=== PATIENT | female | born 1950 ===

== ENCOUNTER 2017-05-11 13:00 | Emergency (ER) | payer MEDICARE, MEDICAID ==
[2017-05-11 13:32] VITALS: BP 128/81
--- NOTE | 2017-05-11 15:11 | UC ---
Yony Ramírez Stephanie, scribed for Silvia Bryant MD on 05/11/17 at 1448 . Upper Extremity HPI - HPI Summary HPI Summary: The pt is a 66 y/o F presenting to with finger pain on her L middle finger that began yesterday. Symptoms include bruising over the left middle digit. The pt tripped and fell while leaving [employer] and landed on her knees bilaterally. Pt states struck left hand as well. Pt has been using hand normally, pt is RHD. Pt was at day program and RN wanted pt's finger checked. Pt also has mild edema to right knee. Pt has been walking without difficulty or a limp. no ecchymosis to to knee. No open wounds. Pt did not strike head. No LOC. no other injuries. pt has been acting baseline today. pt given motirn x 1 dose last night. Pt with MR - hx per house staff present with her. Patients medication reviewed this visit. - History of Current Complaint Chief Complaint: UCUpperExtremity Stated Complaint: HAND INJURY Time Seen by Provider: 05/11/17 14:36 Hx Obtained From: Family/[employer]le [employer] - caretakers, Other: - Pt with MR- limited communication, following commands without difficulty Onset/Duration: Sudden Onset, Lasting Days - 1, Still Present Location Of Pain: Is Discrete @ - L middle digit Aggravating Factor(s): Nothing Alleviating Factor(s): Nothing Associated Signs And Symptoms: Positive: Bruising - Allergies/Home Medications Allergies/Adverse Reactions: Allergies Allergy/AdvReac Type Severity Reaction Status Date / Time Atorvastatin [From Lipitor] Allergy Unknown Verified 05/11/17 13:32 Reaction Details Home Medications: Home Medications Cholecalciferol [Vitamin D] 1,000 tab PO DAILY 05/11/17 [History Confirmed 05/11] PMH/Surg Hx/FS Hx/Imm Hx Previously Healthy: Yes - Surgical History Surgical History: Yes Surgery Procedure, Year, and Place: Hysterectomy - Family History Known Family History: Positive: Cardiac Disease - CHF, Other - peripheral neuropathy, CVA - Social History Occupation: Disabled Lives: Assisted Living Alcohol Use: None Substance Use Type: None Smoking Status (MU): Never Smoked Tobacco Have You Smoked in the Last Year: No - Immunization History Most Recent Influenza Vaccination: 02/24/17 Review of Systems Constitutional: Other - Negative: issues with ambulatioon post fall Skin: Bruising, Other - left middle finger Musculoskeletal: Other: - pain over L middle digit, right knee swelling Psychological: Other - baseline per caregiver All Other Systems Reviewed And Are Negative: Yes Physical Exam Triage Information Reviewed: Yes Completion Of Physical Exam Limited Due To: Other - limited second to MR Appearance: Well-Appearing, No Pain Distress, Well-Nourished Vital Signs: Initial Vital Signs Temp 98.5 F 05/11/17 13:20 Pulse 77 05/11/17 13:20 Resp 20 05/11/17 13:20 BP 128/81 05/11/17 13:20 Pulse Ox 99 05/11/17 13:20 Vital Signs Reviewed: Yes Eyes: Positive: Other: - pt blind b/l - clouded b/l ENT: Positive: Normal ENT inspection, Hearing grossly normal, Pharynx normal, TMs normal Dental Exam: Normal Neck exam: Normal Neck: Positive: Supple, Nontender, No Lymphadenopathy Respiratory Exam: Normal Respiratory: Positive: Chest non-tender, Lungs clear, Normal breath sounds, No respiratory distress Cardiovascular Exam: Normal Cardiovascular: Positive: RRR, No Murmur, Pulses Normal Abdominal Exam: Normal Abdomen Description: Positive: Nontender, No Organomegaly, Soft Bowel Sounds: Positive: Present Musculoskeletal: Positive: Other: - Pt with arthritic changes diffuse to hand left middle finger - pt with ecchymosis MCP and PIP. Pt with cicumferential edema base middle finger, PIP No open wounds Pt with flex/ext PIP, DIP Pt with flexion of MCP although not full - baseline per caregiver RLE + SLE + flex/ ext knee, ankle Mild edema suprapatellar no ecchymosis No discomfort with ROM No ecchymosis, abraison, open wound + SLE + flex/ext knee, ankle without discomfort Neurological Exam: Normal Psychological Exam: Normal Psychological: Positive: Normal Response To Family Skin: Positive: Other - ecchymosis left middle finger Diagnostics - Radiology L Middle Digit XRay Xray Interpretation: Positive (See Comments) Radiology Interpretation Completed By: Radiologist - OBLIQUE FRACTURE OF THE PROXIMAL PHALANX OF THE THIRD DIGIT OF THE LEFT HAND Re-Evaluation - Re-Evaluation First Eval Re-Evaluation Time: 15:12 Change: Unchanged - Dr. Bryant followed up with the pt after receiving x-ray of L middle digit and recommended a splint. Dr. Bryant referred pt to orthopedist. house forms completed Upper Extremity Course/Dx - Course Course Of Treatment: Pt presents with care givers s/p injury - Differential Dx/Diagnosis Provider Diagnoses: finger fracture Discharge - Discharge Plan Condition: Stable Disposition: HOME Patient Education Materials: Finger Fracture (ED) Referrals: Marcelino Stevens MD [Primary Care Provider] - Marcelino Fulton MD [Medical Doctor] - As Soon As Possible Additional Instructions: - wear splint for comfort and support - Okay to apply ice (Wrapped in a towel) 20 minutes at a time, 2-3 times a day for 2-3 days - okay to alternate ibuprofen (Advil, Motrin) and Tylenol every 3 hours as needed for pain. - Schedule a follow-up appointment with the orthopedic provider - call to schedule - Contact your doctor or return with questions or concerns The documentation as recorded by the Yony almodovar Stephanie accurately reflects the service I personally performed and the decisions made by , Silvia Bryant MD.
--- NOTE | 2017-05-11 15:14 | RAD ---
HISTORY: Left finger pain, trauma COMPARISONS: None VIEWS: 3, Frontal, lateral, and oblique views of the third digit of the left hand FINDINGS: BONE DENSITY: Normal. BONES: There is an oblique, slightly angulated and minimally displaced fracture of the proximal phalanx of the third digit of the left hand JOINTS: There is no arthropathy. ALIGNMENT: There is no dislocation. SOFT TISSUES: Unremarkable. OTHER FINDINGS: None. IMPRESSION: OBLIQUE FRACTURE OF THE PROXIMAL PHALANX OF THE THIRD DIGIT OF THE LEFT HAND
== END 2017-05-11 15:55 | disposition home or self-care (01) ==
LOC: UCEAST 13:00
DX: S62.613A Displaced fracture of proximal phalanx of left middle finger, initial encounter for closed fracture (principal); W01.0XXA Fall on same level from slipping, tripping and stumbling without subsequent striking against object, initial encounter; Y93.89 Activity, other specified; Y92.512 Supermarket, store or market as the place of occurrence of the external cause; Z90.710 Acquired absence of both cervix and uterus; Z88.8 Allergy status to other drugs, medicaments and biological substances
CPT/HCPCS: 73140; 99211; G0463